=== PATIENT | female | born 1960 | race Caucasian/White ===

== ENCOUNTER 2019-01-30 22:51 | Emergency (ER) | payer OTHER ==
[~2019-01-30] VITALS: Ht 162.6 cm; Wt 68.0 kg
[2019-01-30 22:58] VITALS: Ht 162.6 cm; Wt 68.0 kg
[2019-01-31 01:23] VITALS: BP 107/52
== END 2019-01-31 01:23 | disposition home or self-care (01) ==
LOC: ED 22:51
DX: I10 Essential (primary) hypertension (principal); R51 Headache; Z88.0 Allergy status to penicillin; Z88.7 Allergy status to serum and vaccine
CPT/HCPCS: 36415